=== PATIENT | female | born 1990 | race Caucasian/White ===

== ENCOUNTER 2019-01-29 14:51 | Emergency (ER) | payer BC, SELFPAY ==
--- NOTE | 2019-01-29 16:15 | RAD REPORT ---
EXAM DESCRIPTION: RAD - Wrist Left 3 View - 01/29/2019 4:02 pm CLINICAL HISTORY: Left wrist pain status post injury FINDINGS: Subtle horizontal lucency is present within the distal metaphysis of the left radius. This is suspicious for a nondisplaced fracture. No dislocation
--- NOTE | 2019-01-29 16:40 | ER ---
Nurse's Notes [facility] Name: Lauren Joseph Age: 29 yrs Sex: Female : 1990 Arrival Date: 01/29/2019 Time: 14:54 Bed 27 Private MD: Diagnosis: Distal left radial metaphysis fracture Presentation: 01/29 15:15 Presenting complaint: Patient states: "I fell on Tuesday and caught myself with my left aa5 hand". Pt c/o pain left wrist pain. Transition of care: patient was not received from another setting of care. Onset of symptoms was January 2019. Risk Assessment: Do you want to hurt yourself or someone else? Patient reports no desire to harm self or others. Initial Sepsis Screen: Does the patient meet any 2 criteria? No. Patient's initial sepsis screen is negative. Does the patient have a suspected source of infection? No. Patient's initial sepsis screen is negative. Care prior to arrival: None. 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 - Social history:: Smoking status: Patient/guardian denies using tobacco. - Ebola Screening: : No symptoms or risks identified at this time. Screenin:20 Abuse screen: Denies threats or abuse. Denies injuries from another. Nutritional ca1 screening: No deficits noted. Tuberculosis screening: No symptoms or risk factors identified. Fall Risk Fall in past 12 months (25 points). Assessment: 15:20 General: Appears in no apparent distress. comfortable, Behavior is calm, cooperative, ca1 appropriate for age. Pain: Complains of pain in left wrist Pain does not radiate. Pain currently is 0 out of 10 on a pain scale. at worst was 6 out of 10 on a pain scale. Pain began 2-3 days ago. Aggravated by repositioning. Neuro: Level of Consciousness is awake, alert, obeys commands, Oriented to person, place, time, situation. Cardiovascular: Heart tones S1 S2 present Capillary refill < 3 seconds Patient's skin is warm and dry. Respiratory: Airway is patent obstructed, Respiratory effort is even, unlabored, Respiratory pattern is regular, symmetrical, Breath sounds are clear bilaterally. GI: No deficits noted. No signs and/or symptoms were reported involving the gastrointestinal system. : No deficits noted. No signs and/or symptoms were reported regarding the genitourinary system. EENT: No deficits noted. No signs and/or symptoms were reported regarding the EENT system. Derm: Skin is intact, is healthy with good turgor, Skin is pink, warm \\T\\ dry. Musculoskeletal: Circulation, motion, and sensation intact. Capillary refill < 3 seconds, Swelling present in left wrist. Injury Description: Bruise sustained to palmar aspect of left wrist is green, was sustained 2 days ago. 16:16 Reassessment: Patient appears in no apparent distress at this time. Patient and/or ca1 family updated on plan of care and expected duration. Pain level reassessed. Patient is alert, oriented x 3, equal unlabored respirations, skin warm/dry/pink. 17:10 Reassessment: Splint seen by provider. ca1 17:12 Reassessment: Patient appears in no apparent distress at this time. Patient is alert, ca1 oriented x 3, equal unlabored respirations, skin warm/dry/pink. PT home with sling. Verbalized understanding of splint care and sling and importance of follow up with orthopedic doctor. Vital Signs: 15:16 BP 142 / 102; Pulse 102; Resp 18 S; Temp 97.8(TE); Pulse Ox 99% on R/A; Weight 79.38 kg aa5 (R); Height 5 ft. 6 in. (167.64 cm) (R); Pain 6/10; 16:16 BP 143 / 102; Pulse 90; Resp 17 S; Pulse Ox 100% on R/A; ca1 17:12 BP 135 / 103; Pulse 93; Resp 17 S; Temp 98; Pulse Ox 100% on R/A; ca1 15:16 Body Mass Index 28.25 (79.38 kg, 167.64 cm) aa5 ED Course: 14:54 Patient arrived in ED. rg4 15:16 Triage completed. aa5 15:16 Arm band placed on. aa5 15:20 Patient has correct armband on for positive identification. Bed in low position. Call ca1 light in reach. Side rails up X 1. Pulse ox on. NIBP on. Warm blanket given. 15:20 No provider procedures requiring assistance completed. ca1 15:23 Lady Mccarty, RN is Primary Nurse. ca1 15:30 De Londono PA is PHCP. jr8 15:30 Mendez Palacios MD is Attending Physician. jr8 16:02 XRAY Wrist LEFT 3 view In Process Unspecified. EDMS 16:39 Ramy Matt MD is Referral Physician. jr8 16:50 Usama wrap to left wrist Sling applied to left arm. Sugar tong splint applied on left ca1 forearm by Tai Conklin fitness specialist. Pt tolerated well. 17:18 Patient did not have IV access during this emergency room visit. ca1 Administered Medications: No medications were administered Outcome: 16:40 Discharge ordered by . jr8 17:18 Discharged to home ambulatory. ca1 17:18 Condition: stable 17:18 Discharge instructions given to patient, Instructed on discharge instructions, follow up and referral plans. medication usage, Demonstrated understanding of instructions, follow-up care, medications, Prescriptions given X 1. 17:18 Patient left the ED. ca1 Signatures: Dispatcher [employer] EDMS Katt Dodson, RN RN aa5 De Londono PA PA jr8 Sheila Prather rg4 Lady Mccarty, RN RN ca1
--- NOTE | 2019-01-29 16:41 | EDPHYS ---
Physician Documentation [facility] Name: Lauren Joseph Age: 29 yrs Sex: Female : 1990 Arrival Date: 01/29/2019 Time: 14:54 Bed 27 Private MD: ED Physician Mendez Palacios HPI: 01/29 15:38 This 29 yrs old Female presents to ER via Ambulatory with complaints of Arm jr8 Injury. 15:38 The complaints affect the left wrist. Onset: The symptoms/episode began/occurred jr8 acutely, 3 day(s) ago. Modifying factors: The symptoms are alleviated by nothing. the symptoms are aggravated by movement. Associated signs and symptoms: The patient has no apparent associated signs or symptoms. Severity of symptoms: At their worst the symptoms were mild, in the emergency department the symptoms are unchanged. The patient has experienced a previous episode. The patient has not recently seen a physician. 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 - Social history:: Smoking status: Patient/guardian denies using tobacco. - Ebola Screening: : No symptoms or risks identified at this time. ROS: 15:38 Constitutional: Negative for fever, chills, and weight loss. jr8 15:38 MS/extremity: Positive for ecchymosis, pain, tenderness, of the left wrist. 15:38 All other systems are negative. Exam: 15:38 Eyes: Pupils equal round and reactive to light, extra-ocular motions intact. Lids and jr8 lashes normal. Conjunctiva and sclera are non-icteric and not injected. Cornea within normal limits. Periorbital areas with no swelling, redness, or edema. ENT: Nares patent. No nasal discharge, no septal abnormalities noted. Tympanic membranes are normal and external auditory canals are clear. Oropharynx with no redness, swelling, or masses, exudates, or evidence of obstruction, uvula midline. Mucous membranes moist. Neck: Trachea midline, no thyromegaly or masses palpated, and no cervical lymphadenopathy. Supple, full range of motion without nuchal rigidity, or vertebral point tenderness. No Meningismus. Cardiovascular: Regular rate and rhythm with a normal S1 and S2. No gallops, murmurs, or rubs. Normal PMI, no JVD. No pulse deficits. Respiratory: Lungs have equal breath sounds bilaterally, clear to auscultation and percussion. No rales, rhonchi or wheezes noted. No increased work of breathing, no retractions or nasal flaring. Abdomen/GI: Soft, non-tender, with normal bowel sounds. No distension or tympany. No guarding or rebound. No evidence of tenderness throughout. Back: No spinal tenderness. No costovertebral tenderness. Full range of motion. Skin: Warm, dry with normal turgor. Normal color with no rashes, no lesions, and no evidence of cellulitis. Neuro: Awake and alert, GCS 15, oriented to person, place, time, and situation. Cranial nerves II-XII grossly intact. Motor strength 5/5 in all extremities. Sensory grossly intact. Cerebellar exam normal. Normal gait. 15:38 Musculoskeletal/extremity: Extremities: grossly normal except: noted in the left wrist: pain, tenderness, to the dorsal left wrist with bruising to wrist and dorsal hand , ROM: intact in all extremities, full active range of motion, full passive range of motion, limited active range of motion due to pain, limited passive range of motion due to pain, Circulation is intact in all extremities. Sensation intact. Vital Signs: 15:16 BP 142 / 102; Pulse 102; Resp 18 S; Temp 97.8(TE); Pulse Ox 99% on R/A; Weight 79.38 kg aa5 (R); Height 5 ft. 6 in. (167.64 cm) (R); Pain 6/10; 16:16 BP 143 / 102; Pulse 90; Resp 17 S; Pulse Ox 100% on R/A; ca1 17:12 BP 135 / 103; Pulse 93; Resp 17 S; Temp 98; Pulse Ox 100% on R/A; ca1 15:16 Body Mass Index 28.25 (79.38 kg, 167.64 cm) aa5 Procedures: 16:27 Splinting: Splint applied to left wrist using Orthoglass splint, applied by tech. padilla Examined by me, post splint application: neurovascular intact, 2+ distal pulses palpable, brisk capillary refill noted, Patient tolerated well. MDM: 15:30 Patient medically screened. jr8 16:27 Data reviewed: vital signs, nurses notes, radiologic studies, plain films, and as a jr8 result, I will discharge patient. Data interpreted: Pulse oximetry: on room air is 100 %. Interpretation: normal. Counseling: I had a detailed discussion with the patient and/or guardian regarding: the historical points, exam findings, and any diagnostic results supporting the discharge/admit diagnosis, radiology results, the need for outpatient follow up, a orthopedic surgeon, to return to the emergency department if symptoms worsen or persist or if there are any questions or concerns that arise at home. 01/29 15:38 Order name: XRAY Wrist LEFT 3 view; Complete Time: 16:18 jr8 01/29 16:19 Order name: Splint - Sugar Tong - Forearm; Complete Time: 17:12 jr8 Administered Medications: No medications were administered Disposition: 17:21 Co-signature as Attending Physician, Mendez Palacios MD. rn Disposition: 01/29/19 16:40 Discharged to Home. Impression: Distal left radial metaphysis fracture. - Condition is Stable. - Discharge Instructions: Radial Fracture. - Prescriptions for Ibuprofen 800 mg Oral Tablet - take 1 tablet by ORAL route every 12 hours As needed take with food; 20 tablet. - Medication Reconciliation Form, Thank You Letter, Antibiotic Education, Prescription Opioid Use form. - Follow up: Ramy Matt MD; When: 2 - 3 days; Reason: Recheck today's complaints, Continuance of care, Re-evaluation by your physician. - Problem is new. - Symptoms have improved. Signatures: Dispatcher [employer] EDMS Mnedez Palacios MD MD rn Calderon, Audri, RN RN aa5 De Londono PA PA jr8 Lady Mccarty, RN RN ca1 Corrections: (The following items were deleted from the chart) 17:18 16:40 01/29/2019 16:40 Discharged to Home. Impression: Distal left radial metaphysis ca1 fracture. Condition is Stable. Forms are Medication Reconciliation Form, Thank You Letter, Antibiotic Education, Prescription Opioid Use. Follow up: Ramy Matt; When: 2 - 3 days; Reason: Recheck today's complaints, Continuance of care, Re-evaluation by your physician. Problem is new. Symptoms have improved. jr8
[2019-01-29 17:25] VITALS: O2SAT 100
[2019-01-29 17:26] VITALS: BP 135/103; TEMP 98
== END 2019-01-29 17:18 | disposition home or self-care (01) ==
LOC: ER 14:51
PROC: 2W3DX1Z Immobilization of Left Lower Arm using Splint (ICD-10-PCS; principal; 2019-01-29)
DX: S52.592A Other fractures of lower end of left radius, initial encounter for closed fracture (principal)
CPT/HCPCS: 99284

== ENCOUNTER 2023-05-09 17:48 | Emergency (ER) | payer SELFPAY ==
--- OUTSIDE RECORDS SUMMARY | 2023-05-09 17:51 | XMS REPORT | Continuity of Care Document ---
:1990 Author Organization [facility] t Address [address] [facility] [address] [place] [address] Care Team Providers Name Role Phone BO CAR Primary Care Physician Unavailable JOSE HAMEED Attending Clinician Unavailable Jose Francisco Attending Clinician Problems This patient has no known problems. Allergies, Adverse Reactions, Alerts Allergy Allergy Status Severity Reaction(s) Onset Inactive Treating Comm ents Source Name Type Date Date Clinician NO KNOWN Drug Active Univers ALLERGIE Class ity of [facility] Social History Social Habit Start Date Stop Date Quantity Comments Source Gender identity [facility] Sexual orientation General acute hospital Sex Assigned At [address] 1990 [facility] 00:00:00 00:00:00 [facility] Branch Smoking Status Start Date Stop Date Source Tobacco smoking consumption [facility] Medications Ordered Filled Start Stop Current Ordering Indication Dosage Frequency Signature Comments Components Source Medication Medication Date Date Medication? Clinician (SIG) Name Name ketorolac 2022- No 30mg 30 mg, Unive rs (TORADOL) 04-20 Intramuscu ity of injection 21:30: 20:58 lar, ONCE, [place] 30 mg 00 :00 1 dose, On Medical Tue04/20/23 Branch at 1630, ALONDRA HYDROcodone 2022- No 1{tbl} 1 tablet, Univers -acetaminop 04-20 Oral, ity of hen (NORCO 21:30: 20:58 ONCE, 1 [place] as 5) 5-325 mg 00 :00 dose, On Medi jennie tablet 1 Tue04/20/23 Branc h tablet at 1630, ALONDRA dexAMETHaso 2022- No 8mg 8 mg, Univ ers ne 04-20 Oral, ONCE ity of (DECADRON) 21:30: 20:58 NOW, 1 [place] tablet 8 mg 00 :00 dose, On [facility] Tue04/20/23 Branch at 1630, Routine naproxen Yes [id number] 500mg Take 1 Un shasha 500 mg 8-09 tablet by ity of tablet 00:00: mouth in [place] 00 the Medical morning Branch and 1 tablet in the evening. Take with meals. cyclobenzap Yes [id number] 5mg Take 1 Univers rine 5 mg 8-09 tablet by ity o f tablet 00:00: mouth [place] 00 every 8 Medical (eight) Branch hours as needed for Muscle Spasms. Vital Signs Vital Name Observation Time Observation Value Comments Source Systolic blood 2023-04-20 21:13:40 120 mm[Hg] Univer [facility]ity of [facility] Diastolic blood 2023-04-20 21:13:40 87 mm[Hg] [facility] 2023-04-20 21:13:40 79 /min [facility] Body temperature 2023-04-20 21:13:40 36.78 [facility] Respiratory rate 2023-04-20 21:13:40 18 /min [facility] acute hospital Oxygen saturation in 2023-04-20 21:13:40 99 /min [facility] Arterial blood by [facility] Pulse oximetry [place] Body height 2023-04-20 20:32:00 172.7 cm [facility] Body weight 2023-04-20 20:32:00 79.379 kg [facility] BMI 2023-04-20 20:32:00 26.61 kg/m2 [facility] Procedures Procedure Date / Time Performed Performing Clinician Sour e NOTICE OF PRIVACY 2023-04-20 20:25:18 Doctor Unassigned, No Univ [facility] PRACTICES Name [facility] CONSENT/REFUSAL FOR 2023-04-20 20:24:26 Doctor Unassigned, [facility] AND Name Medical Branch TREATMENT Encounters Start End Encounter Admission Attending Care Care Encounter Source Date/Time Date/Time Type Type Clinicians Facility Department ID 2023-04-20 2023-04-20 Emergency X RIDDLE, [facility] ERT [id number] Univers 15:35:00 16:17:00 JOSE it y of [facility] 2023-04-20 2023-04-20 Emergency Swink, [facility] [id number] Univers 15:35:00 16:17:00 Jose CALIXTO [id number] ity gayle HOLLIS [id number] [facility] [id number] [place] [id number] Branch Results This patient has no known results. Notes Date/Time Note Provider Source 2023-04-20 15:30:05-00:00 Formatting of this note migh t be different from the original. [facility] - Health CC: patient presents to the ER with complaints of back pain that radiates down the left leg. Patient states symptoms have been present for the past 5 days. Patient has taken OTC medications without relief. PMHx: see history Awake, alert, oriented, resp reg unlabored, skin warm and dry, color appropriate for race, moves all ext without difficulty, amb without assistance. Appears in no distress.
[2023-05-09] MEDS ORDERED: KETOROLAC 30 MG/ML INJ ONE (18:38)
[2023-05-09] MEDS ORDERED: dexAMETHasone 10 MG/ML VIAL ONE (18:38)
--- NOTE | 2023-05-09 19:37 | RAD REPORT ---
EXAM DESCRIPTION: RAD - Lumbar Spine 3 Views - 05/09/2023 7:27 pm CLINICAL HISTORY: Pain;Lower back pain Radiculopathy COMPARISON: No comparisons FINDINGS: Vertebral body heights appear maintained. No compression fracture noted. Mild L5-S1 disc s pace narrowing. No spondylolysis or spondylolisthesis. IMPRESSION: Mild L5-S1 spondylosis.
--- NOTE | 2023-05-09 20:15 | EDPHYS ---
Physician Documentation [facility] Name: Lauren Joseph Age: 33 yrs Sex: Female : 1990 Arrival Date: 05/09/2023 Time: 17:48 Bed IW2 Private MD: ED Physician Mendez Palacios HPI: 05/09 20:22 This 33 yrs old Female presents to ER via Ambulatory with complaints of Back Pain, Fall kb Injury. 20:22 The patient presents with pain that is acute. The symptoms are located in the low back. kb The pain does not radiate. The problem was sustained during a fall. Onset: The symptoms/episode began/occurred 3 week(s) ago. Modifying factors: The patient symptoms are alleviated by nothing, the patient symptoms are aggravated by any movement. Associated signs and symptoms: The patient has no apparent associated signs or symptoms. Severity of symptoms: At their worst the symptoms were moderate, in the emergency department the symptoms are unchanged. The patient has not experienced similar symptoms in the past. The patient has been recently seen by a physician: the ER physician, out of Town, with similar presenting complaints. Historical: - Allergies: 18:25 Zyrtec; mb9 - Home Meds: 18:25 None [Active]; mb9 - PMHx: 18:25 None; mb9 - PSHx: 18:25 None; mb9 - Immunization history:: Adult Immunizations up to date. - Social history:: Smoking status: Patient denies any tobacco usage or history of. ROS: 20:24 Constitutional: Negative for fever, chills, and weight loss. kb 20:24 Back: Positive for pain at rest, pain with movement, of the lumbar area. 20:24 All other systems are negative. Exam: 20:24 Constitutional: This is a well developed, well nourished patient who is awake, alert, kb and in no acute distress. Head/Face: Normocephalic, atraumatic. ENT: Moist Mucous membranes Cardiovascular: Regular rate and rhythm with a normal S1 and S2. No gallops, murmurs, or rubs. No pulse deficits. Respiratory: Respirations even and unlabored. No increased work of breathing. Talking in full sentences Abdomen/GI: Soft, non-tender. No distention Skin: Warm, dry with normal turgor. Normal color. MS/ Extremity: Pulses equal, no cyanosis. Neurovascular intact. Full, normal range of motion. Neuro: Awake and alert, GCS 15, oriented to person, place, time, and situation. Moves all extremities. Normal gait. 20:24 Back: pain, that is moderate, of the lumbar area, ROM is painful, normal spinal alignment noted. Vital Signs: 18:20 BP 159 / 84; Pulse 89; Resp 18; Temp 98.1; Pulse Ox 100% on R/A; Weight 83.91 kg; mb9 Height 5 ft. 7 in. ; Pain 10/10; 18:20 Body Mass Index 28.97 (83.91 kg, 170.18 cm) mb9 18:20 Pain Scale: Adult mb9 MDM: 18:18 Patient medically screened. kb 20:24 Differential diagnosis: strain, fracture, Herniated disc. Data reviewed: vital signs, kb nurses notes. Counseling: I had a detailed discussion with the patient and/or guardian regarding the historical points, exam findings, and any diagnostic results supporting the discharge/admit diagnosis, radiology results, the need for outpatient follow up, a family practitioner, to return to the emergency department if symptoms worsen or persist or if there are any questions or concerns that arise at home. 05/09 18:24 Order name: Lumbar Spine (3 Views) XRAY; Complete Time: 19:45 kb Administered Medications: 18:31 Drug: Dexamethasone IM 10 mg Route: IM; Site: left gluteus; mb9 18:31 Drug: Ketorolac IM 30 mg Route: IM; Site: right gluteus; mb9 Disposition Summary: 05/09/23 20:15 Discharge Ordered Location: Home kb Condition: Stable kb Diagnosis - Low back pain kb Followup: kb - With: Emergency Department - When: As needed - Reason: Worsening of condition Followup: kb - With: Private Physician - When: 2 - 3 days - Reason: Recheck today's complaints, Continuance of care, Re-evaluation by your physician Discharge Instructions: - Discharge Summary Sheet kb - Acute Back Pain, Adult kb - Musculoskeletal Pain kb Forms: - Medication Reconciliation Form kb - Thank You Letter kb - Antibiotic Education kb - Prescription Opioid Use kb - Patient Portal Instructions kb - Leadership Thank You Letter kb Prescriptions: - Diclofenac Sodium 75 mg Oral tablet,delayed release (DR/EC) - take 1 tablet by ORAL route 2 times per day As needed; 30 tablet; Refills: 0, kb Product Selection Permitted - orphenadrine citrate 100 mg Oral Tablet Sustained Release - take 1 tablet by ORAL route 2 times per day As needed; 20 tablet; Refills: 0, kb Product Selection Permitted Signatures: Dispatcher [employer] Toya Medina, Puja Ulrich RN RN mb9 Corrections: (The following items were deleted from the chart) 18:26 18:25 PSHx: None; mb9 mb9
--- NOTE | 2023-05-09 20:15 | ER ---
Nurse's Notes [facility] Name: Lauren Joseph Age: 33 yrs Sex: Female : 1990 Arrival Date: 05/09/2023 Time: 17:48 Bed IW2 Private MD: Diagnosis: Low back pain Presentation: 05/09 18:20 Chief complaint: Patient states: "3 weeks ago, I was putting up a shower curtain and mb9 fell into my shower and hurt my lower back. The pain hasn't gotten better. I can't stand straight all the way or raise my leg more than a few inches. I went to [facility] and they said it was sciatica and just sent me home with pain medications.". Coronavirus screen: At this time, the client does not indicate any symptoms associated with coronavirus-19. Ebola Screen: No symptoms or risks identified at this time. Initial Sepsis Screen: Does the patient meet any 2 criteria? No. Patient's initial sepsis screen is negative. Does the patient have a suspected source of infection? No. Patient's initial sepsis screen is negative. Risk Assessment: Do you want to hurt yourself or someone else? Patient reports no desire to harm self or others. Onset of symptoms was 2022. 18:20 Method Of Arrival: Ambulatory 9 18:20 Acuity: RACHELLE 4 mb9 Triage Assessment: 18:24 General: Appears uncomfortable, Behavior is cooperative. Pain: Complains of pain in mb9 back Pain currently is 10 out of 10 on a pain scale. Quality of pain is described as aching, throbbing, Pain began 3 weeks ago Is continuous, Aggravated by increased activity, repositioning, weight bearing. EENT: No signs and/or symptoms were reported regarding the EENT system. Neuro: Lugo Agitation-Sedation Scale (RASS): 0 - Alert and Calm Level of Consciousness is awake, alert, obeys commands, Oriented to person, place, time, situation, Appropriate for age. Cardiovascular: Patient's skin is warm and dry. Respiratory: Airway is patent Respiratory effort is even, unlabored, Respiratory pattern is regular, symmetrical. GI: No signs and/or symptoms were reported involving the gastrointestinal system. : No signs and/or symptoms were reported regarding the genitourinary system. Derm: Skin is pink, warm \\T\\ dry. Musculoskeletal: Range of motion: intact in all extremities. Historical: - Allergies: 18:25 Zyrtec; mb9 - Home Meds: 18:25 None [Active]; mb9 - PMHx: 18:25 None; mb9 - PSHx: 18:25 None; mb9 - Immunization history:: Adult Immunizations up to date. - Social history:: Smoking status: Patient denies any tobacco usage or history of. Screenin:35 [facility] ED Fall Risk Assessment (Adult) History of falling in the last 3 months, kl including since admission No falls in past 3 months (0 pts). [facility] ED Fall Risk Assessment (Adult) Confusion or Disorientation No (0 pts) Intoxicated or Sedated No (0 pts) Impaired Gait Yes (1 pt) Mobility Assist Device Used No (0 pt) Altered Elimination No (0 pt) Score/Fall Risk Level 0 - 2 = Low Risk Oriented to surroundings, Maintained a safe environment. Abuse screen: Denies threats or abuse. Nutritional screening: No deficits noted. Tuberculosis screening: No symptoms or risk factors identified. Assessment: 20:35 General: Appears uncomfortable, Behavior is calm, cooperative. Pain: Complains of pain kl in lumbar area. Neuro: No deficits noted. Vital Signs: 18:20 BP 159 / 84; Pulse 89; Resp 18; Temp 98.1; Pulse Ox 100% on R/A; Weight 83.91 kg; mb9 Height 5 ft. 7 in. ; Pain 10/10; 18:20 Body Mass Index 28.97 (83.91 kg, 170.18 cm) mb9 18:20 Pain Scale: Adult mb9 ED Course: 17:51 Patient arrived in ED. mg5 18:11 Toya Akers FNP-C is [facility]. kb 18:11 Mendez Palacios MD is Attending Physician. kb 18:24 Triage completed. mb9 18:24 Arm band placed on. mb9 19:29 Lumbar Spine (3 Views) XRAY In Process Unspecified. EDMS 20:36 No provider procedures requiring assistance completed. Patient did not have IV access kl during this emergency room visit. Administered Medications: 18:31 Drug: Dexamethasone IM 10 mg Route: IM; Site: left gluteus; mb9 18:31 Drug: Ketorolac IM 30 mg Route: IM; Site: right gluteus; mb9 Outcome: 20:15 Discharge ordered by MD. corrigan 20:36 Discharged to home ambulatory, with family. jag 20:36 Condition: stable 20:36 Discharge instructions given to patient, Instructed on discharge instructions, follow up and referral plans. medication usage, Demonstrated understanding of instructions, follow-up care, medications, Prescriptions given X 2. 20:36 Patient left the ED. jag Signatures: Dispatcher [employer] ED[employer] Toya Akers, INVENTORY CLERK-C INVENTORY CLERK-Yuko Cleveland, RN RN Puja Ward RN RN [email or web address] Mere Singer mg5 Corrections: (The following items were deleted from the chart) 18:26 18:25 PSHx: None; aris hurst
[2023-05-09 21:47] VITALS: BP 159/84; TEMP 98.1; O2SAT 100
== END 2023-05-09 20:36 | disposition home or self-care (01) ==
LOC: ER 17:48
DX: M54.50 Low back pain, unspecified (principal)
CPT/HCPCS: 72100; 96372; 99284; J1100